=== PATIENT | male | born 1970 | race Caucasian/White ===

== ENCOUNTER 2016-11-24 09:48 | Emergency (ER) | payer OTHER ==
[2016-11-24 08:58] LABS: ASCORBIC ACID (UR NOT ORDER) 40 (NEG); BILIRUBIN, URINE NEGATIVE (NEG); ER URINALYSIS TAT 0 Hrs 15 Mins; KETONE, URINE NEGATIVE (NEG); LEUKOCYTE ESTERASE(NOT OR NEG (NEG); NITRITE (URINE) NEG (NEG); WBC (NOT ORDERED) (RFLEX) 1 (0-5)
[2016-11-24 09:14] LABS: BASOPHILS 0.2 %; BASOPHILS ABSOLUTE 0.02 10/3/uL (0.0-0.16); EOSINOPHILS 2.8 %; EOSINOPHILS ABSOLUTE 0.23 10/3/uL (0.0-0.53); ER CBC TAT 0 Hrs 09 Mins; HEMATOCRIT 42.6 % (40.0-51.0); HEMOGLOBIN 14.4 g/dL (13.6-17.8); IMMATURE GRANULOCYTES 0.2 %; IMMATURE GRANULOCYTES ABSOLUTE 0.02 10/3/uL (0.0-0.11); LYMPHOCYTES 21.6 %; LYMPHOCYTES ABSOLUTE 1.77 10/3/uL (0.67-4.30); MANUAL DIFF NO %; MEAN CORPUS HGB CONC 33.8 g/dL (32.0-36.0); MEAN CORPUSCULAR HEMOGLOB 29.1 pg (26.0-34.0); MEAN CORPUSCULAR VOLUME 86.1 fL (80-100); MEAN PLATELET VOLUME 9.9 fL (9.2-13.0); MONOCYTES 5.5 %; MONOCYTES ABSOLUTE 0.45 10/3/uL (0.21-1.20); NEUTROPHILS 69.7 %; NEUTROPHILS ABSOLUTE 5.72 10/3/uL (2.02-8.40); PLATELET COUNT 302 10/3/uL (150-400); RBC DISTRIBUTION WIDTH 14.5 % (12.0-16.0); RED CELL COUNT 4.95 10/6/uL (4.7-6.1); WHITE BLOOD CELLS 8.2 10/3/uL (4.5-10.5)
[2016-11-24 09:27] LABS: A/G RATIO 0.9 (0.7-1.9); ALBUMIN 3.7 G/DL (3.5-5.0); ALKALINE PHOSPHATASE 97 U/L (45-117); BUN (BLOOD UREA NITROGEN) 22 MG/DL (6-23); CALCIUM, SERUM 8.8 MG/DL (8.5-10.4); CHLORIDE, SERUM 103 MMOL/L (96-112); CO2 (CARBON DIOXIDE) 31 MMOL/L (24-34); CREATININE 1.27 MG/DL (0.70-1.30); GFR AFRICAN AMERICAN 79 ML/MIN (>=60); GFR NON AFRICAN AMERICAN 68 ML/MIN (>=60); GLOBULIN 3.9 G/DL (2.5-4.1); GLUCOSE, SERUM 136 MG/DL (60-99); POTASSIUM, SERUM 4.1 MMOL/L (3.5-5.3); SGOT(AST) 17 U/L (5-40); SGPT(ALT) 48 U/L (5-65); SODIUM, SERUM 140 MMOL/L (135-148); TOTAL BILIRUBIN 0.5 MG/DL (0-1.2); TOTAL PROTEIN 7.6 G/DL (6.0-8.5)
[~2016-11-24 09:48] MED LIST: FISH-EPA1000 MG PO; HYDROCHLOROT25 MG PO; PCET PO; PRILO PO; PRIN10 PO; VENTOLIN HFA INH; VICODINTAB PO; Z300 PO
== END 2016-11-24 11:34 | disposition home or self-care (01) ==
LOC: ER 09:48
PROVIDERS: Nurse Practitioner Family
DX: N20.2 Calculus of kidney with calculus of ureter (principal); J45.909 Unspecified asthma, uncomplicated; I10 Essential (primary) hypertension; Z87.442 Personal history of urinary calculi; Z87.891 Personal history of nicotine dependence; Z88.0 Allergy status to penicillin; Z79.899 Other long term (current) drug therapy
CPT/HCPCS: 74176; 80053; 81001; 83690; 85025; 96374; 96375; 99284; J1170; J1885; J2250; J2405; J2550; J3010; Q9967

== ENCOUNTER 2016-11-24 13:27 | Day surgery (SDC) | payer OTHER ==
--- NOTE | ~2016-11-24 | OP ---
Record Of Operation [facility] [address] [place]. [address] NAME: ZAIN GUZMAN JR : 72 STATUS : [facility]#: [id number] AGE: 46 ADM/REG DATE : 11/24/16 MR#: [id number] REPORT SERV DATE: 11/24/16 DICTATED BY: JOSE HERNANDES DATE: 11/24/16 REPORT STATUS : Draft TRANSCRIBED BY: MODMahendra DATE: 11/24/16 DATE OF PROCEDURE: 11/24/2016 PREOPERATIVE DIAGNOSIS: Right distal ureteral stone, multiple right renal stones. POSTOPERATIVE DIAGNOSIS: Right distal ureteral stone, multiple right renal stones. PROCEDURES PERFORMED: Cystoscopy, right retrograde pyelogram, right rigid ureteroscopy with basket retrieval of distal ureteral stone, right flexible ureterorenoscopy with removal of multiple stones from the right kidney, and laser fragmentation of multiple stones in the right kidney and stent placement. SURGEON: Jose Hernandes M.D. ANESTHESIA: General. ESTIMATED BLOOD LOSS: Less than 10 mL. INDICATIONS: This is a 46-year-old white male with recurrent stone disease, who presented to the emergency room this morning with severe right flank pain secondary to a 5 mm distal right ureteral stone. In addition, he has multiple nonobstructing bilateral renal stones. After discussion of management options, we have decided to proceed with endoscopic fragmentation and/or extraction of the distal stone as well as fragmentation and/or removal of as many other renal stones as possible. Risks of infection, bleeding, failure, need for further surgery, prolonged stenting, etc. were reviewed. PROCEDURE IN DETAIL: The patient was taken to the operating room and underwent a general anesthetic. He was placed in a lithotomy position on the table, and his external genitalia were sterilely prepped and draped. A 22-Belizean cystoscope sheath with 30 degree lens was inserted under direct vision per urethra with the aid of the video monitor. The anterior urethra was normal. The prostatic urethra was relatively short with minimal occlusion really. The bladder was inspected. The mucosa looked normal throughout. Single orifices were seen bilaterally. There were no stones or mass lesions in the bladder. A right retrograde pyelogram was obtained showing moderate hydroureter columning down to a filling defect just above the UVJ. The right collecting system was mildly to moderately dilated as well. An 0.038 guidewire was advanced up through the ureter and into the kidney under fluoroscopic guidance. The short rigid ureteroscope was then advanced through the ureteral orifice and almost immediately, a stone was encountered. This was grasped with a 1.9 Nitinol basket and removed intact without difficulty. An 11-Belizean ureteral access sheath with obturator was then inserted over the guidewire and advanced up into the midureter under fluoroscopic guidance. A second guidewire was placed through the access sheath, and the sheath and obturator were then reinserted over one of the two guidewires leaving the other in place as a safety wire. The flexible ureteroscope was advanced up through the access sheath and through the more proximal ureter and on into the collecting system of the kidney. There were three upper pole calyceal calculi, which were grasped and removed without difficulty. There was one mid pole calyceal stone, which was also grasped and removed. Record Of Operation [facility] [address] [facility] [place]. [address] NAME: MEGANZAIN CORDERO JR : 72 STATUS : [facility] PAT#: [id number] AGE: 46 ADM/REG DATE : 11/24/16 MR#: [id number] REPORT SERV DATE: 11/24/16 DICTATED BY: JOSE HERNANDES DATE: 11/24/16 REPORT STATUS : Draft TRANSCRIBED BY: JOSE MARTIN DATE: 11/24/16 There was a much larger lower pole stone. This was grasped with a Nitinol basket and redeposited into the upper pole calyx and then the 200 micron laser fiber was used to fragment the stone into tiny pieces. Reinspection of the renal collecting system revealed stone debris in the upper pole calices and some stone debris in the lower pole calyx as well. The remaining lower pole stones were 3 mm or less in size. I tried to grab them with a basket, but was unable to do so. We then withdrew the flexible scope down through the ureter with no significant findings and no significant residual stones noted. The cystoscope was replaced over the guidewire and a 6-Belizean x 26 cm Contour stent was advanced over the guidewire such that the proximal end of the stent was observed to coil in the pelvis of the kidney under fluoroscopic guidance and the distal end of the stent was visually observed to coil in the bladder following removal of the guidewire. The stent was left connected to a string dangle, which was taped to the patient's penis. He tolerated the procedure well. There were no complications. He was taken to recovery in stable condition. DS/MODL Jose Hernandes M.D. / [id number] CC: Constantine Pina M.D.
[2016-11-29 15:46] LABS: STONE COMPOSITION TWO DNR (())
== END 2016-11-24 22:24 | disposition home or self-care (01) ==
LOC: SDC 13:27
PROVIDERS: Urology
PROC: 0T768DZ Dilation of Right Ureter with Intraluminal Device, Via Natural or Artificial Opening Endoscopic (ICD-10-PCS; 2016-11-24)
PROC: 0TC38ZZ Extirpation of Matter from Right Kidney Pelvis, Via Natural or Artificial Opening Endoscopic (ICD-10-PCS; 2016-11-24)
PROC: 0TC68ZZ Extirpation of Matter from Right Ureter, Via Natural or Artificial Opening Endoscopic (ICD-10-PCS; 2016-11-24)
PROC: 0WFR8ZZ Fragmentation in Genitourinary Tract, Via Natural or Artificial Opening Endoscopic (ICD-10-PCS; principal; 2016-11-24 14:45)
DX: N20.2 Calculus of kidney with calculus of ureter (principal); I10 Essential (primary) hypertension; E66.9 Obesity, unspecified; M10.9 Gout, unspecified; Z79.899 Other long term (current) drug therapy
CPT/HCPCS: 71010; 74420; 82365; 93005; A9270-GY; C1758; C1769; C1894; C2617; J1170; J2405; J2710; Q9967